=== PATIENT | male | born 1965 | race African-American/Black ===

== ENCOUNTER 2023-02-27 09:10 | Day surgery (SDC) | payer OTHER ==
[~2023-02-27] VITALS: Ht 188 cm; Wt 74.8 kg
[~2023-02-27 09:10] MED LIST: APAP325 MG PO; BENZTROPINE1 MG PO; LIPITOR20 M1 PO; PERPHENAZINE8 MG PO; TEGRETOL S PO
[2023-02-27 11:02] VITALS: BP 108/71
== END 2023-02-27 11:38 | disposition designated cancer center or children's hospital (05) | DRG 951 ==
LOC: ENDO 09:10
PROVIDERS: ATTEND Surgery
PROC: 0DJD8ZZ Inspection of Lower Intestinal Tract, Via Natural or Artificial Opening Endoscopic (ICD-10-PCS; principal; 2023-02-27)
DX: Z12.11 Encounter for screening for malignant neoplasm of colon (principal); K64.8 Other hemorrhoids; K64.4 Residual hemorrhoidal skin tags

== ENCOUNTER 2023-06-05 07:14 | Day surgery (SDC) | payer OTHER ==
[~2023-06-05] VITALS: Ht 188 cm; Wt 81.6 kg
[2023-06-05 09:31] VITALS: BP 113/78
== END 2023-06-05 09:50 | disposition designated cancer center or children's hospital (05) | DRG 951 ==
LOC: ENDO 07:14
PROVIDERS: ATTEND Surgery
PROC: 0DJD8ZZ Inspection of Lower Intestinal Tract, Via Natural or Artificial Opening Endoscopic (ICD-10-PCS; principal; 2023-06-05)
DX: Z12.11 Encounter for screening for malignant neoplasm of colon (principal); K64.8 Other hemorrhoids; K64.4 Residual hemorrhoidal skin tags

== ENCOUNTER 2024-11-01 20:49 | Emergency (ER) | payer OTHER ==
[~2024-11-01] VITALS: Ht 188 cm; Wt 73.0 kg
[2024-11-01 20:54] VITALS: BP 103/57
[2024-11-01 21:01] VITALS: BP 101/57
[2024-11-01 21:17] LABS: BASO% 0.6 % (0-3); EOS% 1.4 % (0-8); HEMATOCRIT 37.2 % (39.0-50.0); HEMOGLOBIN 11.7 g/dl (14.0-18.0); LYMPH% 32.2 % (15-41); MEAN CELL VOLUME 92.8 fL CALC (80.0-100.0); MEAN CORPUSCULAR HGB 29.2 pG CALC (26.0-32.0); MEAN CORPUSCULAR HGB CONC 31.5 g/dL CAL (32.0-36.0); NEUT# 2.77 thou/uL (1.82-7.42); NEUT% 56.8 % (42-76); RED BLOOD COUNT 4.01 mill/uL (4.70-6.10); RED CELL DISTRI WIDTH 12.5 % (11.5-15.5)
[2024-11-01 21:31] LABS: ALKALINE PHOSPHATASE 59 u/l (38-126); ANION GAP 15 (6-22 (CALC)); BILIRUBIN, TOTAL 0.4 mg/dL (0.2-1.3); BUN 12 mg/dL (9-20); BUN/CREATININE RATIO 19 (12-20 (CALC)); CARBON DIOXIDE 23 mmol/l (22-30); CHLORIDE 105 mmol/l (95-108); CREATININE 0.6 mg/dL (0.7-1.3); ESTIMATED GFR 112 ML/MIN (>=90 (CALC)); POTASSIUM 3.3 mmol/l (3.5-5.1); SGOT/AST 41 u/l (17-59); SODIUM 139 mmol/l (137-146)
[2024-11-01 21:49] LABS: URINE BILIRUBIN - DIPSTICK Negative (NEGATIVE); URINE BLOOD DIPSTICK Negative (NEGATIVE); URINE GLUCOSE - DIPSTICK Negative (NEGATIVE); URINE KETONE Negative (NEGATIVE); URINE LEUK ESTERASE Negative (NEGATIVE); URINE NITRITE - DIPSTICK Negative (Negative); URINE PH 6.5 (4.5-8.0); URINE PROTEIN - DIPSTICK 30 mg/dL (NEG-TRACE); URINE SPECIFIC GRAVITY 1.015; URINE UROBILINOGEN - DIPSTICK 0.2 E.U./dL (0.2)
[2024-11-01 21:50] LABS: URINE COLOR Yellow
[2024-11-01 21:57] LABS: URINE RBC 0-2 RBC/hpf (0-5); URINE WBC 0-2 WBC/hpf (0-5)
[2024-11-01 23:00] VITALS: BP 101/57
== END 2024-11-01 23:00 | disposition designated cancer center or children's hospital (05) | DRG 312 ==
LOC: ED 20:49
PROVIDERS: Family Medicine
DX: R55 Syncope and collapse (principal); F19.90 Other psychoactive substance use, unspecified, uncomplicated